=== PATIENT | male | born 1935 | race Caucasian/White ===

== ENCOUNTER 2018-06-26 08:53 | Observation (INO) ==
[2018-06-26] MEDS ORDERED: 0.9 % Sodium Chloride 1,000 ML IVC ONE (09:17)
--- NOTE | 2018-06-26 09:32 | Emergency Department Note ---
Disposition Clinical Impression: MALATHI (acute kidney injury) Disposition: Admitted As Inpatient Condition: Good Referrals: NONE,PCP [Primary Care Provider] - Forms: ED Satisfaction Letter, Work/School Release Time of Disposition: 10:07 General Adult HPI - General Chief complaint: ED General Medical Stated complaint: kidney issues Time Seen by Provider: 06/26/18 09:10 Source: patient Limitations: no limitations Nursing Notes Reviewed: Yes Vital Signs Reviewed: Yes - History of Present Illness HPI Narrative: Mr. Feldman comes to the [facility] ER by squad today. He is not sure why he is here is he is feeling otherwise fine. ER staff here a [facility] gives me hard copies of labs that show a creatinine of 2.44 and a potassium of 5.9. On review of the [facility] records he was here about a month ago and the creatinine and potassium were 1.2 and 5.9 respectively. Mr. Feldman denies any complaints. Review of systems as below. He has had a Castro catheter in for about a year. He is not sure when A changes last but ER staff called the longterm back and it was just emptied before he left and is "brand-new". He has an ongoing left foot wound. Pain Scale: 0 - Related Data Home Medications Medication Instructions Recorded Confirmed Acetaminophen [Tylenol] 650 mg PO Q4H PRN 05/22/18 06/26/18 Aspirin [Lo-Dose Aspirin EC] 162 mg PO DAILY 05/22/18 06/26/18 Cholecalciferol (Vitamin D3) 50,000 unit PO QWEEK 05/22/18 06/26/18 [Vitamin D] Docusate Sodium [Dulcolax Stool 100 mg PO BID 05/22/18 06/26/18 Softener] Fluticasone/Vilanterol [Breo 1 each IH DAILY 05/22/18 06/26/18 Ellipta 100-25 Mcg INH] Furosemide [Lasix] 80 mg PO BID 05/22/18 06/26/18 Lactobacillus Acidophilus 1 mg PO BID 05/22/18 06/26/18 [Acidophilus Probiotic] Levothyroxine Sodium [Tirosint] 75 mcg PO DAILY 05/22/18 06/26/18 Lisinopril [Zestril] 10 mg PO DAILY 05/22/18 06/26/18 Omeprazole [PriLOSEC] 20 mg PO DAILY 05/22/18 06/26/18 Oxycodone HCl 5 mg PO DAILY 05/22/18 06/26/18 Oxycodone HCl [Roxybond] 5 mg PO Q8H PRN 05/22/18 06/26/18 Potassium Chloride [Klor-Con 10] 20 meq PO TID 05/22/18 06/26/18 PredniSONE [Annel] 2.5 mg PO DAILY 05/22/18 06/26/18 Sennosides/Docusate Sodium 1 each PO DAILY 05/22/18 06/26/18 [Senna-S Tablet] Umeclidinium [place] [Incruse 62.5 mcg IH DAILY 05/22/18 06/26/18 Ellipta] Metoclopramide [Reglan] 5 mg PO Q6HR 06/26/18 06/26/18 Previous Rx's Medication Instructions Recorded Oxygen 1 each .ROUTE AD PRN #1 each 05/22/18 Allergies Allergy/AdvReac Type Severity Reaction Status Date / Time No Known Allergies Allergy Verified 05/22/18 00:40 Constitutional: Denies: fever, chills ENT ED: Denies: ear pain, throat pain Cardiovascular: Denies: chest pain, palpitations Respiratory: Denies: cough, dyspnea Gastrointestinal: Denies: abdominal pain, nausea, vomiting, diarrhea Genitourinary: Reports: as per HPI Musculoskeletal: Denies: back pain Integumentary: Reports: as per HPI Neurological: Denies: weakness Psychiatric: Denies: anxiety, depression Endocrine: Denies: fatigue Hematological/Lymphatic: Denies: easy bleeding, easy bruising Past Medical History - Past Medical History Medical history: Reports: asthma, CHF, COPD, dementia, GERD, hypertension, renal disease, thyroid disease Surgical history: Reports: cataract, cholecystectomy Psychiatric history: Reports: no psych history - Social History Smoking Status: Never smoker Smokeless Tobacco Status: No Alcohol use: Reports: none Drug use: Reports: none Physical Exam - General Limitations: no limitations General appearance: alert, in no apparent distress - Head Head exam: atraumatic, normocephalic - Eye Eye exam: Present: normal appearance - ENT ENT exam: normal oropharynx - Neck Neck exam: Present: normal inspection. Absent: lymphadenopathy - Chest Chest inspection: Present: normal inspection, symmetric chest wall rise - Respiratory Respiratory exam: Present: normal lung sounds bilaterally. Absent: respiratory distress - Cardiovascular Cardiovascular exam: Present: regular rate, normal rhythm, normal heart sounds - Abdominal Exam Abdominal exam: Present: soft, Non-Tender - Male exam: Present: other (Castro catheter with a very small amount of yellow urine in the bag.) - Extremities Exam Extremities exam: Present: other (Left lower extremity is dressed from calf to foot.). Absent: calf tenderness - Neurological Exam Neurological exam: Present: alert, oriented X3 - Psychiatric Psychiatric exam: Present: normal affect, normal mood - Skin Skin exam: Present: warm, dry Course Vital Signs Temperature 98.1 F 06/26/18 08:54 Pulse Rate 98 06/26/18 08:54 Respiratory Rate 18 06/26/18 08:54 Blood Pressure 124/76 06/26/18 08:54 O2 Sat by Pulse Oximetry 97 06/26/18 08:54 Temperature 98.1 F 06/26/18 08:54 Pulse Rate 90 06/26/18 10:38 Respiratory Rate 18 06/26/18 10:38 Blood Pressure 122/71 06/26/18 10:38 O2 Sat by Pulse Oximetry 97 06/26/18 10:38 Oxygen Delivery Oxygen Delivery Room Air Medical Decision Making - MDM Narrative Medical decision making narrative: Acute kidney injury. Obstruction has been addressed with a new Castro. On review of the med list is in quite a bit of Lasix at 80 twice a day with a normal EF from just one month ago. We will hold this along with the CARLTON inhibitor and the potassium supplement hydrate him at 125 mL an hour of 0.9 normal saline and check a BMP in the morning. I presented the case to the covering hospitalist who accepted admission. Mr. Feldman also is in agreement. He appears well awaiting transfer to the floor. Indicators of infection on urinalysis noted. He does have an indwelling Castro therefore these could be co ntaminants. Furthermore there is no white count fever or change in his vital signs and he appears well. We will await culture results. - Medical Records Medical records reviewed: Yes I reviewed the patient's medical records. - Lab Data Lab results reviewed: Yes I reviewed the patient's lab results. Result diagrams: 06/26/18 09:22 06/26/18 09:22 Lab Results 06/26/18 06/26/18 06/26/18 Range/Units 09:22 09:22 09:22 WBC 9.1 (4.3-11.1) K/mcL RBC 4.02 L (4.19-5.50) M/mcL Hgb 12.0 L (12.9-16.9) g/dL Hct 38.0 (37.5-50.1) % MCV 94.5 (83.0-100.0) fL MCH 29.9 (28.0-33.3) pg MCHC 31.6 (31.6-35.5) g/dL RDW 14.0 (11.5-14.5) % Plt Count 367 (140-400) K/mcL MPV 9.5 (9.4-12.4) fL Immature Gran % 0.3 (0-4) % Seg Neutrophils % 49.8 % Lymphocytes % 35.5 % Monocytes % 7.8 % Eosinophils % 6.3 % Basophils % 0.3 % Neutrophils # 4.5 (1.6-8.9) K/mcL Lymphocytes # 3.2 (0.6-4.6) K/mcL Monocytes # 0.7 (0.0-1.3) K/mcL Eosinophils # 0.6 (0.0-0.6) K/mcL Basophils # 0.0 (0.0-0.2) K/mcL PT 11.7 (9.4-12.1) Seconds INR 1.0 APTT 32.5 (26.0-36.0) Seconds Sodium 132 L (136-145) mEq/L Potassium 4.9 (3.5-5.1) mEq/L Chloride 99 (98-107) mEq/L Carbon Dioxide 26 (23-29) mEq/L BUN 28 H (8-23) mg/dL Creatinine 2.18 H (0.70-1.30) mg/dL Est GFR ( Amer) 35 L (> 60) Est GFR (Non-Af Amer) 29 L (> 60) BUN/Creatinine Ratio 13 (6-26) Glucose 147 H (70-105) mg/dL Calculated Osmolality 282 (280-300) Calcium 9.6 (8.6-10.3) mg/dL Magnesium 2.3 (1.6-2.6) mg/dL Total Bilirubin 0.4 (0.3-1.0) mg/dL AST 16 (13-39) Units/L ALT 17 (7-52) Units/L Alkaline Phosphatase 79 (34-104) Units/L Serum Total Protein 6.2 L (6.4-8.9) g/dL Albumin 3.7 (3.5-5.7) g/dL Globulin 2.5 (2.4-3.5) g/dL Albumin/Globulin Ratio 1.5 (1.1-2.2) Urine Color (Yellow) Urine Clarity (Clear) Urine pH (5.0-8.0) pH Units Ur Specific Exline (1.010-1.025) Urine Protein (Neg-Trace) mg/dL Urine Glucose (UA) (Normal) mg/dL Urine Ketones (Negative) mg/dL Urine Blood (Negative) Urine Nitrite (Negative) Urine Bilirubin (Negative) Urine Urobilinogen (Normal) mg/dL Ur Leukocyte Esterase (Negative) Urine Microscopic RBC (0-3) per hpf Urine Microscopic WBC (0-3) per hpf Ur Squamous Epith Cells (None-Few) per lpf Urine Bacteria (None-Few) per hpf Ur Culture Indicated? (NO) 06/26/18 Range/Units 10:18 WBC (4.3-11.1) K/mcL RBC (4.19-5.50) M/mcL Hgb (12.9-16.9) g/dL Hct (37.5-50.1) % MCV (83.0-100.0) fL MCH (28.0-33.3) pg MCHC (31.6-35.5) g/dL RDW (11.5-14.5) % Plt Count (140-400) K/mcL MPV (9.4-12.4) fL Immature Gran % (0-4) % Seg Neutrophils % % Lymphocytes % % Monocytes % % Eosinophils % % Basophils % % Neutrophils # (1.6-8.9) K/mcL Lymphocytes # (0.6-4.6) K/mcL Monocytes # (0.0-1.3) K/mcL Eosinophils # (0.0-0.6) K/mcL Basophils # (0.0-0.2) K/mcL PT (9.4-12.1) Seconds INR APTT (26.0-36.0) Seconds Sodium (136-145) mEq/L Potassium (3.5-5.1) mEq/L Chloride (98-107) mEq/L Carbon Dioxide (23-29) mEq/L BUN (8-23) mg/dL Creatinine (0.70-1.30) mg/dL Est GFR ( Amer) (> 60) Est GFR (Non-Af Amer) (> 60) BUN/Creatinine Ratio (6-26) Glucose (70-105) mg/dL Calculated Osmolality (280-300) Calcium (8.6-10.3) mg/dL Magnesium (1.6-2.6) mg/dL Total Bilirubin (0.3-1.0) mg/dL AST (13-39) Units/L ALT (7-52) Units/L Alkaline Phosphatase (34-104) Units/L Serum Total Protein (6.4-8.9) g/dL Albumin (3.5-5.7) g/dL Globulin (2.4-3.5) g/dL Albumin/Globulin Ratio (1.1-2.2) Urine Color Yellow (Yellow) Urine Clarity Cloudy A (Clear) Urine pH 7.0 (5.0-8.0) pH Units Ur Specific Exline 1.015 (1.010-1.025) Urine Protein 30 H (Neg-Trace) mg/dL Urine Glucose (UA) Normal (Normal) mg/dL Urine Ketones Negative (Negative) mg/dL Urine Blood Large H (Negative) Urine Nitrite Negative (Negative) Urine Bilirubin Negative (Negative) Urine Urobilinogen Normal (Normal) mg/dL Ur Leukocyte Esterase Large H (Negative) Urine Microscopic RBC 15-30 H (0-3) per hpf Urine Microscopic WBC TNTC H (0-3) per hpf Ur Squamous Epith Cells Few (None-Few) per lpf Urine Bacteria Many H (None-Few) per hpf Ur Culture Indicated? YES A (NO) - EKG Data EKG #1 EKG attestation: Yes I reviewed and interpreted this EKG. EKG results narrative: EKG as interpreted by me sinus tachycardia 108 bpm. No T-wave abnormalities. No ST elevations or depressions. Gatzke appears to be normal although aVF QRS amplitude is diminished. No evidence of hypertrophy. Compared to May 2018 the T waves in V1 and V2 V3 have higher amplitude in that study as opposed to today.
[2018-06-26 09:40] LABS: Basophils % 0.3 %; Eosinophils # 0.6 K/mcL (0.0-0.6); Eosinophils % 6.3 %; Immature Granulocytes % 0.3 % (0-4); Lymphocytes # 3.2 K/mcL (0.6-4.6); Lymphocytes % 35.5 %; Mean Corpuscular HGB Conc 31.6 g/dL (31.6-35.5); Mean Corpuscular Hemoglobin 29.9 pg (28.0-33.3); Mean Corpuscular Volume 94.5 fL (83.0-100.0); Mean Platelet Volume 9.5 fL (9.4-12.4); Monocytes # 0.7 K/mcL (0.0-1.3); Monocytes % 7.8 %; Neutrophils # 4.5 K/mcL (1.6-8.9); Platelet Count 367 K/mcL (140-400); Red Blood Count 4.02 M/mcL (4.19-5.50); Segmented Neutrophils % 49.8 %
[2018-06-26 09:54] LABS: Albumin 3.7 g/dL (3.5-5.7); Albumin/Globulin Ratio 1.5 (1.1-2.2); Bilirubin,Total 0.4 mg/dL (0.3-1.0); Calcium 9.6 mg/dL (8.6-10.3); Globulin 2.5 g/dL (2.4-3.5); Magnesium 2.3 mg/dL (1.6-2.6); Potassium 4.9 mEq/L (3.5-5.1); Total Protein 6.2 g/dL (6.4-8.9)
[2018-06-26] MEDS ORDERED: 0.9 % Sodium Chloride 1,000 ML IVC SCH ×2 (10:15→10:52)
[2018-06-26 10:17] LABS: Prothrombin Time 11.7 Seconds (9.4-12.1)
[2018-06-26] MEDS ORDERED: Naloxone 0.4 MG/ML INJ IVP PRN ×2 (10:17→10:58)
[2018-06-26] MEDS ORDERED: NON-FORMULARY MEDICATION 1 EACH EACH (Oxygen [Oxygen] 1 EACH) PRN ×2 (10:17→10:58)
[2018-06-26] MEDS ORDERED: Acetaminophen 325 MG TABLET PO PRN ×2 (10:17→10:58)
[2018-06-26] MEDS ORDERED: OXYCODONE HCL 5 MG PO PRN (10:17)
[2018-06-26 10:20] LABS: Activated Partial Thrombo Time 32.5 Seconds (26.0-36.0)
[2018-06-26 10:23] LABS: Bilirubin,Urine Negative (Negative); Blood,Urine Large (Negative); Clarity,Urine Cloudy (Clear); Color,Urine Yellow (Yellow); Glucose,Urine (UA) Normal (Normal); Ketones,Urine Negative (Negative); Leukocyte Esterase,Urine Large (Negative); Nitrite,Urine Negative (Negative); Protein,Urine 30 mg/dL (Neg-Trace); Specific Gravity,Urine 1.015 (1.010-1.025); Urobilinogen,Urine Normal (Normal)
[2018-06-26 10:38] LABS: Bacteria,Urine Many per hpf (None-Few); RBC,Urine 15-30 per hpf (0-3); Squamous Epithelial Cell,Urine Few per lpf (None-Few); WBC,Urine TNTC per hpf (0-3)
--- NOTE | 2018-06-26 12:23 | Internal Med History&Physical ---
Date of Encounter: 06/26/18 Time of Encounter: 12:00 Assessment and Plan (1) MALATHI (acute kidney injury) Current visit: Yes Status: Acute Likely 2/2 overdiuresis with the patient's PO Lasix 80mg BID. For now, the patient can eat and drink. In addition, we will give IVF and recheck BMP tomorrow. We will hold off on all nephrotoxic agents for now. In case renal function fails to improve, we will consider obtaining further studies. The patient will likely benefit from reducing his home Lasix dose at discharge. Internal Medicine - H&P: HPI Chief complaint: Weakness Admitted From: Long-term Nursing Facility Plans for Post Hospital Care: Transfer Skilled Nursing Care History of present illness: Mr. Feldman is a 82 year old male who had his labs drawn at his SNF due to increasing weakness and was sent to our ED for hyperkalemia. However, per the patient, he has not been feeling weak. In addition, patient reports no recent fever, chills, CP, palpitatios, SOB, n/v, dysuria, seizure, syncope, bruising, or bleeding symptoms. Upon further questioning, the patient does take PO Lasix 80mg BID. Patient does not have DM and does not smoke. In our ED, the patient was overall hemodynamically stable. Labs were significant for normocytic anemia (appears to be overall stable when compared to prior values), mild hyponatremia, and MALATHI. Of note, potassium over here was 4.9. Patient received NS and was admitted for further management. Past Med Surg Social Fam HX - Past Medical History Medical history: asthma, CHF, COPD, dementia, GERD, hypertension, renal disease, thyroid disease Additional medical history: POLIOMEYLITIS. VIT D DEFICIENCY Psychiatric history: no psych history - Past Surgical History Surgical History: cataract, cholecystectomy Additional surgical history: Cataract surgery bilateral per patient. - Social History Smoking Status: Never smoker Smokeless Tobacco Status: No Alcohol use: none Drug use: none - Family History Father Adopted: No Family Member Ethnicity: Non- Living Status: Hx Family Cardiac Disorders: No Hx Family Respiratory Disorders: Yes (ephysema and pneumonia) Hx Family Cancer: No Hx Family GI Disorders: No Hx Family Endocrine Disorder: No Hx Family Neuromuscular Disorders: No Hx Family Neurologic Disorders: No Hx Family HEENT Disorders: No Hx Family Autoimmune Disorders: No Mother Adopted: No Family Member Ethnicity: Non- Living Status: Hx Family Cardiac Disorders: No Hx Family Respiratory Disorders: No Hx Family Cancer: No Hx Family GI Disorders: Yes (gall bladder removal) Hx Family Endocrine Disorder: Yes (Diabetes) Hx Family Neuromuscular Disorders: No Hx Family Neurologic Disorders: No Hx Family HEENT Disorders: No Hx Family Autoimmune Disorders: No Internal Medicine - H&P: Meds Acetaminophen [Tylenol] 650 mg PO Q4H PRN 05/22/18 [History] Aspirin [Lo-Dose Aspirin EC] 162 mg PO DAILY 05/22/18 [History] Cholecalciferol (Vitamin D3) [Vitamin D] 50,000 unit PO QWEEK 05/22/18 [History] Docusate Sodium [Dulcolax Stool Softener] 100 mg PO BID 05/22/18 [History] Fluticasone/Vilanterol [Breo Ellipta 100-25 Mcg INH] 1 each IH DAILY 05/22/18 [History] Furosemide [Lasix] 80 mg PO BID 05/22/18 [History] Lactobacillus Acidophilus [Acidophilus Probiotic] 1 mg PO BID 05/22/18 [History] Levothyroxine Sodium [Tirosint] 75 mcg PO DAILY 05/22/18 [History] Lisinopril [Zestril] 10 mg PO DAILY 05/22/18 [History] Omeprazole [PriLOSEC] 20 mg PO DAILY 05/22/18 [History] Oxycodone HCl 5 mg PO DAILY 05/22/18 [History] Oxycodone HCl [Roxybond] 5 mg PO Q8H PRN 05/22/18 [History] Oxygen 1 each .ROUTE AD PRN #1 each 05/22/18 [Rx] Potassium Chloride [Klor-Con 10] 20 meq PO TID 05/22/18 [History] PredniSONE [Annel] 2.5 mg PO DAILY 05/22/18 [History] Sennosides/Docusate Sodium [Senna-S Tablet] 1 each PO DAILY 05/22/18 [History] Umeclidinium [place] [Incruse Ellipta] 62.5 mcg IH DAILY 05/22/18 [History] Metoclopramide [Reglan] 5 mg PO Q6HR 06/26/18 [History] Allergy/AdvReac Type Severity Reaction Status Date / Time No Known Allergies Allergy Verified 05/22/18 00:40 All Systems PM: A 10-system review of systems was performed and is negative for pertinent findings except as documented above in the HPI. Review of systems: 10 systems reviewed and were (-) other than mentioned per HPI. - Constitutional Vitals: Temp Pulse Resp BP Pulse Ox 98.1 F 96 16 116/58 96 06/26/18 10:53 06/26/18 10:53 06/26/18 10:53 06/26/18 10:53 06/26/18 10:53 Exam: Gen: A&Ox3, NAD. HEENT: NCAT. Neck: No palpable lymphadenopathy or thyromegaly. CV: RRR, S1S2. No murmur. Capillary refill < 2 seconds. Pulm: CTAB. Abd: (+)BS. NDNT. Neuro: Generalized weakness, otherwise non-focal. Skin: No rash. Ext: No pitting edema. Internal Med - H&P Results - Labs CBC & Chem 7: 06/26/18 09:22 06/26/18 09:22 Labs: Short CBC 06/26/18 Range/Units 09:22 WBC 9.1 (4.3-11.1) K/mcL Hgb 12.0 L (12.9-16.9) g/dL Hct 38.0 (37.5-50.1) % Plt Count 367 (140-400) K/mcL Neutrophils # 4.5 (1.6-8.9) K/mcL BMP 06/26/18 09:22 Sodium 132 L Potassium 4.9 Chloride 99 Carbon Dioxide 26 BUN 28 H Creatinine 2.18 H Glucose 147 H Calcium 9.6 Liver Function 06/26/18 Range/Units 09:22 Total Bilirubin 0.4 (0.3-1.0) mg/dL AST 16 (13-39) Units/L ALT 17 (7-52) Units/L Alkaline Phosphatase 79 (34-104) Units/L Albumin 3.7 (3.5-5.7) g/dL Urine 06/26/18 Range/Units 10:18 Urine Color Yellow (Yellow) Urine Clarity Cloudy A (Clear) Urine pH 7.0 (5.0-8.0) pH Units Ur Specific [place] 1.015 (1.010-1.025) Urine Protein 30 H (Neg-Trace) mg/dL Urine Glucose (UA) Normal (Normal) mg/dL
[2018-06-26] MEDS: 0.9 % Sodium Chloride 1,000 ML IVC SCH ×4 (12:30→22:45)
[2018-06-26] MEDS: *HR* OxyCODONE Immed Rel 5 MG TABLET PO PRN (12:35)
[2018-06-26] MEDS: *HR* Heparin 5,000 UNIT/ML VIAL SQ SCH ×2 (17:38→21:00)
[2018-06-26] MEDS ORDERED: *HR* Heparin 5,000 UNIT/ML VIAL SQ SCH ×2 (18:00)
[2018-06-26] MEDS: Lactobacillus 1 EACH CAP.SPRINK PO SCH (20:59)
[2018-06-27 06:54] LABS: BUN/Creatinine Ratio 16 (6-26); Blood Urea Nitrogen 22 mg/dL (8-23); Calcium 8.9 mg/dL (8.6-10.3); Carbon Dioxide 23 mEq/L (23-29); Chloride 110 mEq/L (98-107); Glucose 92 mg/dL (70-105); Osmolality,Calculated 293 (280-300); Potassium 4.3 mEq/L (3.5-5.1); Sodium 140 mEq/L (136-145); eGFR For Non-African Americans 51 (> 60)
[2018-06-27] MEDS: *HR* Heparin 5,000 UNIT/ML VIAL SQ SCH (06:59)
[2018-06-27] MEDS: *HR* OxyCODONE Immed Rel 5 MG TABLET PO PRN (08:31)
[2018-06-27] MEDS: Lactobacillus 1 EACH CAP.SPRINK PO SCH (08:32)
[2018-06-27] MEDS ORDERED: Aspirin Enteric Coated 81 MG Tablet PO SCH (09:00)
[2018-06-27] MEDS ORDERED: NON-FORMULARY MEDICATION 1 EACH EACH (Umeclidinium Bromide [Incruse Ellipta] 62.5 MCG) IH SCH (09:00)
[2018-06-27] MEDS ORDERED: NON-FORMULARY MEDICATION 1 EACH EACH (Fluticasone/Vilanterol [Breo Ellipta 100-25 Mcg Inh] IH SCH (09:00)
[2018-06-27] MEDS ORDERED: Sennosides/Docusate Sodium TABLET PO SCH ×2 (09:00)
[2018-06-27] MEDS ORDERED: predniSONE 5 MG TABLET PO SCH (09:00)
[2018-06-27] MEDS ORDERED: LEVOTHYROXINE SODIUM 75 MCG PO SCH (09:00)
[2018-06-27] MEDS ORDERED: PREDNISONE 2.5 MG PO SCH (09:00)
[2018-06-27] MEDS ORDERED: (Fluticasone/Vilanterol [Breo Ellipta 100-25 Mcg Inh]) IH SCH (09:00)
[2018-06-27] MEDS ORDERED: (Umeclidinium Bromide [Incruse Ellipta] 62.5 MCG) IH SCH (09:00)
[2018-06-27] MEDS: 0.9 % Sodium Chloride 1,000 ML IVC SCH (09:27)
--- NOTE | 2018-06-27 09:27 | Physician Discharge Referral ---
Addendum entered and electronically signed by Mati Osei MD 06/27/18 10:06: Original Note: [facility] Referral Info Provider in Charge after Transfer: Other Institutional Level of Care: Skilled - Diagnosis (1) MALATHI (acute kidney injury) Priority: Primary Status: Acute Prognosis: Fair Aware of Diagnosis: Patient - Transfer Medications Home Medications: Acetaminophen [Tylenol] 650 mg PO Q4H PRN 05/22/18 [History] Aspirin [Lo-Dose Aspirin EC] 162 mg PO DAILY 05/22/18 [History] Cholecalciferol (Vitamin D3) [Vitamin D] 50,000 unit PO QWEEK 05/22/18 [History] Docusate Sodium [Dulcolax Stool Softener] 100 mg PO BID 05/22/18 [History] Fluticasone/Vilanterol [Breo Ellipta 100-25 Mcg INH] 1 each IH DAILY 05/22/18 [History] Furosemide [Lasix] 80 mg PO BID 05/22/18 [History] Lactobacillus Acidophilus [Acidophilus Probiotic] 1 mg PO BID 05/22/18 [History] Levothyroxine Sodium [Tirosint] 75 mcg PO DAILY 05/22/18 [History] Lisinopril [Zestril] 10 mg PO DAILY 05/22/18 [History] Omeprazole [PriLOSEC] 20 mg PO DAILY 05/22/18 [History] Oxycodone HCl 5 mg PO DAILY 05/22/18 [History] Oxycodone HCl [Roxybond] 5 mg PO Q8H PRN 05/22/18 [History] Oxygen 1 each .ROUTE AD PRN #1 each 05/22/18 [Rx] Potassium Chloride [Klor-Con 10] 20 meq PO TID 05/22/18 [History] PredniSONE [Annel] 2.5 mg PO DAILY 05/22/18 [History] Sennosides/Docusate Sodium [Senna-S Tablet] 1 each PO DAILY 05/22/18 [History] Umeclidinium [place] [Incruse Ellipta] 62.5 mcg IH DAILY 05/22/18 [History] Metoclopramide [Reglan] 5 mg PO Q6HR 06/26/18 [History] Allergies/Adverse Reactions: Allergy/AdvReac Type Severity Reaction Status Date / Time No Known Allergies Allergy Verified 05/22/18 00:40 - Respiratory Orders Smoking Cessation: Smoking cessation has been advised. For more information, call the [place] Tobacco Quit Line at 0-740-OBSN-NOW. - Advance Directives Code Status: Full Code CERTIFICATION: I certify that the transfer of the above named patient to an Extended Care Facility is necessary for the continuing treatment of the diagnosis listed. The above information is true and accurate reflection of patient's current condition. Confidential - Redisclosure prohibited without a patient's written consent.
--- NOTE | 2018-06-27 09:31 | Discharge Summary ---
Addendum entered and electronically signed by Mati Osei MD 06/27/18 11:11: It should have been mentioned that the patient has a left heel decubitus. The wound care team will try to see him today before discharge. If not, they suggest that he have an outpatient consultation with them. Addendum entered and electronically signed by Mati Osei MD 06/27/18 10:07: I have personally performed a face to face evaluation on this patient. I have reviewed and agree with the care plan. History and Exam by me shows: Patient is "lazy" but otherwise without complaint. He states he has not had a bowel movement 3 or 4 days. He feels better than when he came in is ready to return to the senior care. Discussed care with other providers and/or nursing. Patient has no complaint of chest discomfort, dyspnea, orthopnea, palpitations, nausea or vomiting, constipation or diarrhea, other changes in bowel habits, difficulty with urination, rash or itching, or other new complaints, except as mentioned above. Review of systems is otherwise negative. Examination: (Except as mentioned above): General: In no apparent distress. Alert and oriented 3. Nondiaphoretic. Head: Atraumatic and normocephalic. Respiratory: No use of accessory muscles. Lungs are clear throughout. Normal airflow. Cardiovascular: Regular rate and rhythm without murmur appreciated. Abdomen: Bowel sounds are normal. No hepatosplenomegaly mass or tenderness appreciated. Obese and therefore difficult to palpate deeply. Extremities: No cyanosis clubbing or edema. Skin: Warm and non-diaphoretic with no new lesions noted. Patient has a chronic Castro and looks like a chronic UTI. This is not back in terms of micro-. Will ask that this be followed and communicated with nursing facility but will otherwise return to nursing facility today. Original Note: - NOTES TO OUTPATIENT PROVIDER Notes to Outpatient Provider: urine culture pending. Orders not resulted at time of discharge: Pending orders 06/26/18 09:19 EKG [ECG 12 lead ECG] [ECG] Stat 06/26/18 10:18 Culture,Urine [RM] Stat Date of Encounter: 06/27/18 Time of Encounter: 09:27 - Discharge Diagnosis (1) MALATHI (acute kidney injury) Priority: Primary Status: Acute Comments: improving. creatinine now 1.3. Hospital course: Mr. Feldman is a 82 year old male Discharge discussed with: patient, nurse, social work - Time Spent with Patient Total time spent providing and/or coordinating discharge services: Less than 30 minutes - Discharge Medications Home Medications: Acetaminophen [Tylenol] 650 mg PO Q4H PRN 05/22/18 [History] Aspirin [Lo-Dose Aspirin EC] 162 mg PO DAILY 05/22/18 [History] Cholecalciferol (Vitamin D3) [Vitamin D3] 50,000 unit PO QWEEK 05/22/18 [History] Docusate Sodium [Dulcolax Stool Softener] 100 mg PO BID 05/22/18 [History] Fluticasone/Vilanterol [Breo Ellipta 100-25 Mcg INH] 1 each IH DAILY 05/22/18 [History] Furosemide [Lasix] 80 mg PO BID 05/22/18 [History] Lactobacillus Acidophilus [Acidophilus Probiotic] 1 mg PO BID 05/22/18 [History] Levothyroxine Sodium [Tirosint] 75 mcg PO DAILY 05/22/18 [History] Lisinopril [Zestril] 10 mg PO DAILY 05/22/18 [History] Omeprazole [PriLOSEC] 20 mg PO DAILY 05/22/18 [History] Oxycodone HCl 5 mg PO DAILY 05/22/18 [History] Oxycodone HCl [Roxybond] 5 mg PO Q8H PRN 05/22/18 [History] Oxygen 1 each .ROUTE AD PRN #1 each 05/22/18 [Rx] Potassium Chloride [Klor-Con 10] 20 meq PO TID 05/22/18 [History] PredniSONE [Annel] 2.5 mg PO DAILY 05/22/18 [History] Sennosides/Docusate Sodium [Senna-S Tablet] 1 each PO DAILY 05/22/18 [History] Umeclidinium [place] [Incruse Ellipta] 62.5 mcg IH DAILY 05/22/18 [History] Metoclopramide [Reglan] 5 mg PO Q6HR 06/26/18 [History] Allergies/Adverse Reactions: Allergy/AdvReac Type Severity Reaction Status Date / Time No Known Allergies Allergy Verified 05/22/18 00:40 Date of admission: 06/26/18 10:31 Primary care physician: PCP NONE Consults: 06/26/18 11:14 Consult to Mechanical Design Drafter [CONS] Routine Reason for SW Consult: d/c back to ECF 06/26/18 19:27 Consult to Wound Care [CONS] Routine Reason for Consult: pressure ulcer to left heel Call Completed: Yes Discharging clinician: Mati Osei Anticipated date of discharge: 06/27/18 - Constitutional Vitals: Temp Pulse Resp BP Pulse Ox 98.6 F 98 18 117/73 90 06/27/18 06:59 06/27/18 06:59 06/27/18 06:59 06/27/18 06:59 06/27/18 06:59 General appearance: Present: cooperative, A&O X 3, no acute distress, obese, answers questions appropriately - Head Head exam: Present: atraumatic, normocephalic - Eye Eye exam: Present: PERRL, conjuntiva pink, sclera anicteric Pupils: Present: PERRL - Neck Neck exam general surgery: Present: supple, trachea midline. Absent: lympha denopathy - Respiratory Respiratory exam: Present: CTAB. Absent: accessory muscle use, rales, rhonchi, wheezes - Cardiovascular Cardiovascular exam: Present: RRR, +S1, +S2. Absent: diastolic murmur, gallop, rubs, systolic murmur - GI/Abdominal GI/Abdominal exam: Present: normal bowel sounds, soft, no peritoneal signs. Absent: distended, tenderness - Extremities Exam Extremities exam: Present: warm, radial pulses palpable and symmetrical. Absent: calf tenderness, cyanotic, pedal edema - Neurological Exam Neurological exam: Present: CN II-XII intact, oriented X3, no focal deficits. Absent: pronater drift, facial droop, speech deficit - Skin Skin exam: Present: dry, intact Additional comments: left heel wound drsg dry and intact. - Patient Status Disposition: Transfer SNF Condition: Good Overall status at discharge: patient is back to baseline - Discharge Instructions Follow Up With: NONE,PCP [Primary Care Provider] - - Diet and Activity Activity: increase activity as tolerated Diet: advance to your usual diet
[2018-06-27] MEDS ORDERED: Magnesium Sulfate 1 GM in D5% in Water 100 ML IVPB ONE (10:28)
[2018-06-27 15:17] VITALS: BP 112/68
--- NOTE | 2018-06-27 21:24 | Electrocardiograph Report ---
[place] [address] Test Date: 2018-06-26 Pat Name: Kenneth Feldman Department: 2000 Room: 113 Gender: M Production Inspector: ANGELIQUE : [id number] Requested By: Jemal Turcios Order Number: [id number] Reading MD: Jack Bagley Measurements Intervals [place] Rate: 108 P: 43 [place]: 137 QRS: -9 QRSD: 84 T: 39 QT: 332 QTc: 395 Interpretive Statements SINUS TACHYCARDIA LOW VOLTAGE THROUGHOUT Electronically Signed On 06-27-2018 21:23:52 EST by Jack Bagley
== END 2018-06-27 16:20 ==
LOC: EMEROOGRE 08:53 → INPGRE 08:53

== ENCOUNTER 2020-06-08 14:49 | Inpatient (IN) ==
[2020-06-08] MEDS ORDERED: Ipratropium/Albuterol Neb 3 ML IH ONE ×2 (15:09→15:10)
[2020-06-08 15:28] LABS: Basophils # 0.1 K/mcL (0.0-0.2); Basophils % 0.4 %; Eosinophils # 0.7 K/mcL (0.0-0.6); Eosinophils % 4.9 %; Hematocrit 48.7 % (37.5-50.1); Hemoglobin 16.1 g/dL (12.9-16.9); Immature Granulocytes % 0.2 % (0-4); Lymphocytes # 6.9 K/mcL (0.6-4.6); Lymphocytes % 51.6 %; Mean Corpuscular HGB Conc 33.1 g/dL (31.6-35.5); Mean Corpuscular Hemoglobin 31.1 pg (28.0-33.3); Mean Platelet Volume 9.4 fL (9.4-12.4); Monocytes # 1.1 K/mcL (0.0-1.3); Monocytes % 8.2 %; Neutrophils # 4.6 K/mcL (1.6-8.9); Platelet Count 355 K/mcL (140-400); Red Blood Count 5.18 M/mcL (4.19-5.50); Red Cell Distribution Width 12.4 % (11.5-14.5); Segmented Neutrophils % 34.7 %; White Blood Count 13.3 K/mcL (4.3-11.1)
[2020-06-08 15:33] LABS: Bilirubin,Urine Negative (Negative); Blood,Urine Trace-lysed (Negative); Clarity,Urine Clear (Clear); Color,Urine Yellow (Yellow); Glucose,Urine (UA) Normal (Normal); Ketones,Urine Negative (Negative); Leukocyte Esterase,Urine Large (Negative); Nitrite,Urine Negative (Negative); Protein,Urine Negative (Neg-Trace); Specific Gravity,Urine 1.025 (1.010-1.025); Urobilinogen,Urine Normal (Normal)
[2020-06-08 15:35] LABS: VBG HCO3 34 mEq/L (21-27); VBG PCO2 63 mmHg (41-51); VBG PH 7.35 pH Units (7.32-7.42); VBG PO2 28 mmHg (25-50)
[2020-06-08 15:38] LABS: INR 1.1
[2020-06-08 15:39] LABS: Anisocytosis 1+ (Not Present); Bacteria,Urine Few per hpf (None-Few); Poikilocytosis 1+ (Not Present); Squamous Epithelial Cell,Urine Few per hpf (None-Few)
[2020-06-08 15:40] LABS: Platelet Estimate Normal (Normal)
[2020-06-08 15:41] LABS: Activated Partial Thrombo Time 33.7 Seconds (26.0-36.0)
[2020-06-08 15:48] LABS: Alanine Aminotransferase 37 Units/L (7-52); Albumin 4.4 g/dL (3.5-5.7); Albumin/Globulin Ratio 1.5 (1.1-2.2); Alkaline Phosphatase 115 Units/L (34-104); Aspartate Amino Transferase 36 Units/L (13-39); BUN/Creatinine Ratio 15 (6-26); Bilirubin,Indirect 0.4 mg/dL (0.0-1.0); Bilirubin,Total 0.4 mg/dL (0.3-1.0); Blood Urea Nitrogen 18 mg/dL (8-23); Calcium 9.9 mg/dL (8.6-10.3); Carbon Dioxide 33 mEq/L (23-29); Chloride 96 mEq/L (98-107); Glucose 177 mg/dL (70-105); Osmolality,Calculated 290 (280-300); Potassium 3.7 mEq/L (3.5-5.1); Sodium 137 mEq/L (136-145); Total Protein 7.4 g/dL (6.4-8.9); eGFR For African Americans > 60 (> 60); eGFR For Non-African Americans 58 (> 60)
[2020-06-08 15:52] LABS: Troponin I < 0.03 ng/mL (< 0.04)
[2020-06-08] MEDS ORDERED: Isovue-370 500 ML BOTTLE IVP ONE ×2 (16:13→19:32)
[2020-06-08] MEDS ORDERED: Naloxone 0.4 MG/ML INJ IVP PRN (19:32)
[2020-06-08 20:57] LABS: Magnesium 2.2 mg/dL (1.6-2.6)
[2020-06-08] MEDS ORDERED: 0.9 % Sodium Chloride 500 ML IVC ONE (21:07)
[2020-06-08] MEDS: Ipratropium/Albuterol Neb 3 ML IH SCH (21:28)
[2020-06-08] MEDS ORDERED: MethylPREDNISolone 40 MG/ML VIAL IVP SCH (21:30)
[2020-06-08] MEDS ORDERED: 0.9 % Sodium Chloride 1,000 ML IVC SCH (22:30)
[2020-06-08] MEDS ORDERED: MethylPREDNISolone 40 MG/ML VIAL IVP ONE (23:00)
[2020-06-09] MEDS ORDERED: 0.9 % Sodium Chloride 500 ML IVC ONE ×2 (00:11→03:31)
[2020-06-09] MEDS ORDERED: Pantoprazole 40 MG VIAL IVP ONE (00:12)
[2020-06-09] MEDS: Ipratropium/Albuterol Neb 3 ML IH SCH ×2 (00:39→05:16)
[2020-06-09 03:02] LABS: Basophils % 0.1 %; Hemoglobin 13.3 g/dL (12.9-16.9); Immature Granulocytes % 0.2 % (0-4); Lymphocytes # 0.8 K/mcL (0.6-4.6); Lymphocytes % 8.9 %; Mean Corpuscular HGB Conc 33.3 g/dL (31.6-35.5); Mean Corpuscular Hemoglobin 30.8 pg (28.0-33.3); Mean Corpuscular Volume 92.6 fL (83.0-100.0); Mean Platelet Volume 9.2 fL (9.4-12.4); Monocytes % 0.4 %; Neutrophils # 8.3 K/mcL (1.6-8.9); Platelet Count 256 K/mcL (140-400); Red Blood Count 4.32 M/mcL (4.19-5.50); Red Cell Distribution Width 12.4 % (11.5-14.5); Segmented Neutrophils % 90.4 %; White Blood Count 9.2 K/mcL (4.3-11.1)
[2020-06-09 03:20] LABS: Albumin 3.6 g/dL (3.5-5.7); Albumin/Globulin Ratio 1.3 (1.1-2.2); Bilirubin,Total 0.3 mg/dL (0.3-1.0); Calcium 8.9 mg/dL (8.6-10.3); Globulin 2.7 g/dL (2.4-3.5); Potassium 3.8 mEq/L (3.5-5.1); Total Protein 6.3 g/dL (6.4-8.9)
[2020-06-09 05:55] VITALS: BP 117/72
[2020-06-09] MEDS ORDERED: *HR* Enoxaparin 40 MG/0.4 ML SYRINGE SQ SCH (07:00)
[2020-06-09] MEDS ORDERED: MethylPREDNISolone 40 MG/ML VIAL IVP SCH (08:00)
[2020-06-09] MEDS ORDERED: Sennosides/Docusate Sodium TABLET PO SCH (09:00)
[2020-06-09] MEDS ORDERED: Cholecalciferol (D-3) 1,000 UNIT (25MCG) TABLET PO SCH (09:00)
[2020-06-09] MEDS ORDERED: Furosemide 40 MG TABLET PO SCH (09:00)
[2020-06-09] MEDS ORDERED: Aspirin Enteric Coated 81 MG Tablet PO SCH (09:00)
[2020-06-09] MEDS ORDERED: cefTRIAXone 1,000 MG in 0.9 % Sodium Chloride Mini Bag 100 ML IVPB SCH (09:00)
== END 2020-06-09 08:45 | disposition short-term general hospital (02) | DRG 292 ==
LOC: EMEROOGRE 14:49 → INPGRE 18:54
PROVIDERS: ADMIT Family Medicine; ATTEND Family Medicine

== ENCOUNTER 2021-02-28 00:05 | Inpatient (IN) ==
[2021-02-28] MEDS ORDERED: methylPREDNISolone 125 MG/2 ML VIAL IVP ONE (00:08)
[2021-02-28] MEDS ORDERED: Ipratropium/Albuterol Neb 3 ML IH ONE ×2 (00:08→00:48)
[2021-02-28 00:25] LABS: Basophils # 0.1 K/mcL (0.0-0.2); Basophils % 0.5 %; Eosinophils # 0.7 K/mcL (0.0-0.6); Eosinophils % 5.1 %; Hematocrit 46.3 % (37.5-50.1); Hemoglobin 14.7 g/dL (12.9-16.9); Immature Granulocytes % 0.2 % (0-4); Lymphocytes # 6.4 K/mcL (0.6-4.6); Lymphocytes % 48.6 %; Mean Corpuscular HGB Conc 31.7 g/dL (31.6-35.5); Mean Corpuscular Hemoglobin 29.9 pg (28.0-33.3); Mean Corpuscular Volume 94.1 fL (83.0-100.0); Mean Platelet Volume 9.5 fL (9.4-12.4); Monocytes # 1.1 K/mcL (0.0-1.3); Monocytes % 8.6 %; Neutrophils # 4.9 K/mcL (1.6-8.9); Platelet Count 339 K/mcL (140-400); Red Blood Count 4.92 M/mcL (4.19-5.50); Red Cell Distribution Width 12.8 % (11.5-14.5); White Blood Count 13.2 K/mcL (4.3-11.1)
[2021-02-28 00:32] LABS: Prothrombin Time 11.9 Seconds (9.4-12.1)
[2021-02-28 00:34] LABS: Activated Partial Thrombo Time 35.4 Seconds (26.0-36.0)
[2021-02-28 00:39] LABS: Alanine Aminotransferase 27 Units/L (7-52); Albumin 4.4 g/dL (3.5-5.7); Albumin/Globulin Ratio 1.4 (1.1-2.2); Alkaline Phosphatase 110 Units/L (34-104); Aspartate Amino Transferase 23 Units/L (13-39); BUN/Creatinine Ratio 11 (6-26); Bilirubin,Indirect 0.3 mg/dL (0.0-1.0); Bilirubin,Total 0.3 mg/dL (0.3-1.0); Blood Urea Nitrogen 15 mg/dL (8-23); Calcium 9.3 mg/dL (8.6-10.3); Carbon Dioxide 34 mEq/L (23-29); Chloride 98 mEq/L (98-107); Globulin 3.1 g/dL (2.4-3.5); Glucose 153 mg/dL (70-105); Osmolality,Calculated 292 (280-300); Potassium 3.8 mEq/L (3.5-5.1); Sodium 139 mEq/L (136-145); Total Protein 7.5 g/dL (6.4-8.9); eGFR For African Americans > 60 (> 60); eGFR For Non-African Americans 50 (> 60)
[2021-02-28 00:42] LABS: Troponin I < 0.03 ng/mL (< 0.04)
[2021-02-28 00:45] LABS: VBG HCO3 35 mEq/L (21-27); VBG PCO2 75 mmHg (41-51); VBG PH 7.27 pH Units (7.32-7.42); VBG PO2 32 mmHg (25-50)
[2021-02-28 01:17] LABS: VBG HCO3 26 mEq/L (21-27); VBG PCO2 35 mmHg (41-51); VBG PH 7.47 pH Units (7.32-7.42); VBG PO2 174 mmHg (25-50)
[2021-02-28] MEDS ORDERED: Acetaminophen 325 MG TABLET PO PRN ×2 (03:03)
[2021-02-28] MEDS ORDERED: Ondansetron ODT 4 MG TAB.RAPDIS SL PRN (03:03)
[2021-02-28] MEDS ORDERED: Naloxone 0.4 MG/ML INJ IVP PRN (03:03)
[2021-02-28] MEDS ORDERED: Azithromycin 500 MG in D5% in Water 250 ML IVPB ONE (03:03)
[2021-02-28] MEDS: Ipratropium/Albuterol Neb 3 ML IH SCH ×5 (05:29→20:06)
[2021-02-28] MEDS: *HR* Enoxaparin 40 MG/0.4 ML SYRINGE SQ SCH (05:49)
[2021-02-28 06:01] LABS: Basophils % 0.1 %; Eosinophils % 0.1 %; Hematocrit 40.8 % (37.5-50.1); Hemoglobin 12.9 g/dL (12.9-16.9); Immature Granulocytes % 0.4 % (0-4); Lymphocytes # 1.1 K/mcL (0.6-4.6); Lymphocytes % 11.6 %; Mean Corpuscular HGB Conc 31.6 g/dL (31.6-35.5); Mean Corpuscular Hemoglobin 29.1 pg (28.0-33.3); Mean Corpuscular Volume 91.9 fL (83.0-100.0); Mean Platelet Volume 9.3 fL (9.4-12.4); Monocytes # 0.1 K/mcL (0.0-1.3); Monocytes % 1.2 %; Neutrophils # 8.3 K/mcL (1.6-8.9); Platelet Count 246 K/mcL (140-400); Red Blood Count 4.44 M/mcL (4.19-5.50); Red Cell Distribution Width 12.7 % (11.5-14.5); Segmented Neutrophils % 86.6 %; White Blood Count 9.5 K/mcL (4.3-11.1)
[2021-02-28 06:40] LABS: Alanine Aminotransferase 24 Units/L (7-52); Albumin 3.7 g/dL (3.5-5.7); Albumin/Globulin Ratio 1.3 (1.1-2.2); Alkaline Phosphatase 94 Units/L (34-104); Aspartate Amino Transferase 19 Units/L (13-39); BUN/Creatinine Ratio 14 (6-26); Bilirubin,Total 0.4 mg/dL (0.3-1.0); Blood Urea Nitrogen 16 mg/dL (8-23); Calcium 8.9 mg/dL (8.6-10.3); Carbon Dioxide 26 mEq/L (23-29); Chloride 99 mEq/L (98-107); Globulin 2.8 g/dL (2.4-3.5); Glucose 253 mg/dL (70-105); Osmolality,Calculated 292 (280-300); Phosphorous 1.7 mg/dL (2.7-4.5); Potassium 3.6 mEq/L (3.5-5.1); Sodium 136 mEq/L (136-145); Total Protein 6.5 g/dL (6.4-8.9); eGFR For African Americans > 60 (> 60); eGFR For Non-African Americans > 60 (> 60)
[2021-02-28] MEDS: methylPREDNISolone 125 MG/2 ML VIAL IVP SCH ×3 (09:20→22:22)
[2021-02-28] MEDS: Furosemide 40 MG TABLET PO SCH (09:21)
[2021-02-28] MEDS: Aspirin Enteric Coated 81 MG Tablet PO SCH (09:21)
[2021-02-28] MEDS ORDERED: Dextrose Gel 15 GM/37.5 ML TUBE PO PRN ×2 (12:06)
[2021-02-28] MEDS ORDERED: D5% in Water 1,000 ML IVC PRN (12:06)
[2021-02-28] MEDS ORDERED: *HR* Dextrose 50 % in Water (Vial) 50 ML VIAL IVP PRN (12:06)
[2021-02-28] MEDS: Insulin LISPRO 300 UNITS/3 ML VIAL SUBQ SCH ×3 (12:24→22:27)
[2021-03-01] MEDS: Ipratropium/Albuterol Neb 3 ML IH SCH ×6 (00:04→20:02)
[2021-03-01 06:07] LABS: Basophils % 0.1 %; Hematocrit 35.5 % (37.5-50.1); Hemoglobin 11.5 g/dL (12.9-16.9); Immature Granulocytes % 0.6 % (0-4); Lymphocytes # 1.5 K/mcL (0.6-4.6); Lymphocytes % 10.4 %; Mean Corpuscular HGB Conc 32.4 g/dL (31.6-35.5); Mean Corpuscular Hemoglobin 29.3 pg (28.0-33.3); Mean Corpuscular Volume 90.3 fL (83.0-100.0); Mean Platelet Volume 9.4 fL (9.4-12.4); Monocytes # 0.4 K/mcL (0.0-1.3); Monocytes % 2.6 %; Platelet Count 229 K/mcL (140-400); Red Blood Count 3.93 M/mcL (4.19-5.50); Red Cell Distribution Width 12.7 % (11.5-14.5); Segmented Neutrophils % 86.3 %; White Blood Count 14.4 K/mcL (4.3-11.1)
[2021-03-01 06:14] LABS: Neutrophils # 12.4 K/mcL (1.6-8.9)
[2021-03-01] MEDS: *HR* Enoxaparin 40 MG/0.4 ML SYRINGE SQ SCH (06:22)
[2021-03-01 06:27] LABS: BUN/Creatinine Ratio 19 (6-26); Blood Urea Nitrogen 26 mg/dL (8-23); Calcium 9.1 mg/dL (8.6-10.3); Carbon Dioxide 26 mEq/L (23-29); Chloride 99 mEq/L (98-107); Glucose 281 mg/dL (70-105); Osmolality,Calculated 293 (280-300); Sodium 134 mEq/L (136-145); eGFR For African Americans > 60 (> 60); eGFR For Non-African Americans 50 (> 60)
[2021-03-01] MEDS: Insulin LISPRO 300 UNITS/3 ML VIAL SUBQ SCH ×4 (09:17→21:14)
[2021-03-01] MEDS: methylPREDNISolone 125 MG/2 ML VIAL IVP SCH ×2 (09:17→17:21)
[2021-03-01] MEDS: Aspirin Enteric Coated 81 MG Tablet PO SCH (09:18)
[2021-03-01] MEDS: Furosemide 40 MG TABLET PO SCH (09:18)
[2021-03-01] MEDS ORDERED: Azithromycin 500 MG in 0.9 % Sodium Chloride 250 ML IVPB SCH (10:00)
[2021-03-01] MEDS: Azithromycin 250 MG TABLET PO SCH (10:26)
[2021-03-02] MEDS: Ipratropium/Albuterol Neb 3 ML IH SCH ×7 (00:08→23:56)
[2021-03-02] MEDS: *HR* Enoxaparin 40 MG/0.4 ML SYRINGE SQ SCH (06:25)
[2021-03-02] MEDS: methylPREDNISolone 125 MG/2 ML VIAL IVP SCH ×2 (06:27→16:25)
[2021-03-02] MEDS: Insulin LISPRO 300 UNITS/3 ML VIAL SUBQ SCH ×4 (08:32→21:48)
[2021-03-02] MEDS: Furosemide 40 MG TABLET PO SCH (08:33)
[2021-03-02] MEDS: Aspirin Enteric Coated 81 MG Tablet PO SCH (08:33)
[2021-03-02] MEDS: Azithromycin 250 MG TABLET PO SCH (08:34)
[2021-03-02 11:59] LABS: Basophils % 0.1 %; Hematocrit 37.3 % (37.5-50.1); Immature Granulocytes % 0.7 % (0-4); Lymphocytes # 1.2 K/mcL (0.6-4.6); Lymphocytes % 9.8 %; Mean Corpuscular HGB Conc 32.2 g/dL (31.6-35.5); Mean Corpuscular Hemoglobin 29.4 pg (28.0-33.3); Mean Corpuscular Volume 91.4 fL (83.0-100.0); Mean Platelet Volume 9.6 fL (9.4-12.4); Monocytes # 0.3 K/mcL (0.0-1.3); Monocytes % 2.5 %; Neutrophils # 10.4 K/mcL (1.6-8.9); Platelet Count 233 K/mcL (140-400); Red Blood Count 4.08 M/mcL (4.19-5.50); Segmented Neutrophils % 86.9 %
[2021-03-02 12:20] LABS: BUN/Creatinine Ratio 23 (6-26); Blood Urea Nitrogen 28 mg/dL (8-23); Calcium 9.3 mg/dL (8.6-10.3); Carbon Dioxide 29 mEq/L (23-29); Chloride 100 mEq/L (98-107); Glucose 241 mg/dL (70-105); Osmolality,Calculated 297 (280-300); Potassium 3.7 mEq/L (3.5-5.1); Sodium 137 mEq/L (136-145); eGFR For African Americans > 60 (> 60); eGFR For Non-African Americans 56 (> 60)
[2021-03-03] MEDS: Ipratropium/Albuterol Neb 3 ML IH SCH ×3 (03:52→13:08)
[2021-03-03] MEDS: methylPREDNISolone 125 MG/2 ML VIAL IVP SCH (04:33)
[2021-03-03] MEDS: *HR* Enoxaparin 40 MG/0.4 ML SYRINGE SQ SCH (04:34)
[2021-03-03] MEDS: Azithromycin 250 MG TABLET PO SCH (07:57)
[2021-03-03] MEDS: Furosemide 40 MG TABLET PO SCH (07:57)
[2021-03-03] MEDS: Aspirin Enteric Coated 81 MG Tablet PO SCH (07:58)
[2021-03-03] MEDS: Insulin LISPRO 300 UNITS/3 ML VIAL SUBQ SCH ×2 (07:58→11:35)
[2021-03-03 13:10] VITALS: RESP 20; O2SAT 94
[2021-03-03 16:28] VITALS: BP 113/66; PULSE 81; TEMP 98.7
== END 2021-03-03 16:02 | DRG 291 ==
LOC: EMEROOGRE 00:05 → INPGRE 00:05
PROVIDERS: ADMIT Internal Medicine; ATTEND Internal Medicine